=== PATIENT | female | born 1965 | race Caucasian/White ===

== ENCOUNTER 2017-10-15 00:47 | Emergency (ER) | payer OTHER ==
[~2017-10-15] VITALS: Ht 152.4 cm; Wt 54.4 kg
[2017-10-15] MEDS ORDERED: NOHOMEMEDICATIONS (01:03)
[2017-10-15 01:31] LABS: ABSOLUTE EOSINOPHILS 0.1 thou/uL (0.0-0.7); ABSOLUTE MONOCYTES 0.6 thou/uL (0.0-1.2); ABSOLUTE NEUTROPHILS 3.7 thou/uL (1.6-8.1); BASOPHILS 0.5 %; EOSINOPHILS 1.7 %; HEMOGLOBIN 13.1 gm/dL (12.0-15.0); LYMPHOCYTES 31.5 %; MCH 30.4 pg (26.0-34.0); MCHC 33.7 g/dL (28.0-37.0); MCV 90.2 fL (80.0-100.0); MONOCYTES 8.8 %; MPV 9.4 fl. (7.2-11.1); NUCLEATED RBCS 0 /100WBC; PLATELET COUNT* 201 thou/uL (150-400); POLYS 57.5 %; RBC 4.32 mil/uL (4.20-5.00); RDW-CV 12.7 % (10.5-14.5); WBC 6.5 thou/uL (4.0-11.0)
[2017-10-15] MEDS ORDERED: LIORESAL 10 MG10 MG PO (04:07)
[2017-10-15] MEDS ORDERED: ZOFRAN ODT4 MG PO (04:07)
[2017-10-15] MEDS ORDERED: MEDROLDOSEPACK PO (04:07)
[2017-10-15] MEDS ORDERED: FLEXERIL PO (04:07)
[2017-10-15] MEDS ORDERED: HYDROCODONE-AP1 EAC6 PO (04:07)
[2017-10-15 04:25] VITALS: BP 143/58
--- NOTE | 2017-10-15 10:18 | EKG ---
[place] [address] ELECTROCARDIOGRAM REPORT Name: ROSI CHAVEZ Room: [facility]#: [id number] Admission: 10/15/17 Attend Phys: Discharge: 10/15/17 Date of : 61 Report #: [id number] THIS REPORT FOR: //name// [facility] ED Test Date: 2017-10-15 Test Time: 00:56:44 Pat Name: ROSI CHAVEZ Department: Room: Gender: F Lead Painter: KERRY : 1965 Requested By: Yael Kiser Order Number: [id number] MD: Trevon Patel Measurements Intervals Burket Rate: 78 P: 25 [place]: 146 QRS: 27 QRSD: 99 T: 26 QT: 357 QTc: 407 Interpretive Statements Sinus rhythm Baseline wander in lead(s) V3,V4,V5 No previous ECG available for comparison Electronically Signed On 10-15-2017 10:18:41 CDT by Trevon Patel [email or web address] <ELECTRONICALLY SIGNED> By: Trevon Patel MD, [facility] 10/15/17 1018 [id number] Trevon Patel MD, FACC /EPI
== END 2017-10-15 04:28 | disposition home or self-care (01) ==
LOC: M.ERS 00:47
PROVIDERS: Emergency Medicine
DX: M54.12 Radiculopathy, cervical region (principal); Z90.49 Acquired absence of other specified parts of digestive tract; Z90.710 Acquired absence of both cervix and uterus